=== PATIENT | male | born 1950 | race Caucasian/White ===

== ENCOUNTER 2017-01-16 08:57 | Inpatient (IN) | payer OTHER ==
[~2017-01-16 08:57] MED LIST: ACETAMINOPHEN 325 MG TAB PO PRN; D5W 1/2 NS W/ 20 KCl/L 1,000 ML IV SCH; KETOROLAC 15 MG/1 ML SDV IVP ONE; ONDANSETRON 4 MG/2 ML VIAL IVP PRN
[2017-01-16] MEDS ORDERED: LIDOCAINE 1% 5 ML SDV ID PRN (09:24)
[2017-01-16] MEDS ORDERED: LR 1,000 ML IV ONE (09:24)
[2017-01-16] MEDS ORDERED: ACETAMINOPHEN 325 MG TAB PO ONE (09:30)
[2017-01-16] MEDS ORDERED: FAMOTIDINE 20 MG TAB PO ONE (09:30)
[2017-01-16] MEDS ORDERED: ROPI/epiNEPH/KETOROLAC/morphINE JOINT COCKTAIL IU ONE (09:30)
[2017-01-16] MEDS ORDERED: CEFAZOLIN 2 GM/DEXTR 100 ML IV ONE (09:30)
[2017-01-16] MEDS ORDERED: CHLORHEXIDINE GLUC HIBICLENS 118 ML BTL TP ONE (09:30)
[2017-01-16] MEDS ORDERED: BACITRACIN 50,000 UNITS/10 ML SYR IRR ONE (10:42)
[2017-01-16] MEDS ORDERED: POLYMYXIN B SULFATE 500,000 UNIT/10 ML SYR IRR ONE (10:42)
[2017-01-16] MEDS ORDERED: CALCIUM CHLORIDE 1 GM/10 ML INJ ONE (10:42)
[2017-01-16] MEDS ORDERED: THROMBIN (BOVINE) 5,000 UNIT VIAL TP ONE (10:42)
[2017-01-16] MEDS ORDERED: PROPOFOL 200 MG/20 ML VIAL ONE ×2 (10:56→12:35)
[2017-01-16] MEDS ORDERED: ONDANSETRON 4 MG/2 ML VIAL ONE (10:56)
[2017-01-16] MEDS ORDERED: DEXAMETHASONE 4 MG/ML VIAL ONE (10:56)
[2017-01-16] MEDS ORDERED: LIDOCAINE 2% 100 MG/5 ML SYR ONE (10:56)
[2017-01-16] MEDS ORDERED: ROCURONIUM 50 MG/5 ML VIAL ONE (10:56)
[2017-01-16] MEDS ORDERED: fentaNYL 250 MCG/5 ML INJ ONE (10:56)
[2017-01-16] MEDS ORDERED: MIDAZOLAM 2 MG/2 ML VIAL ONE (11:16)
[2017-01-16] MEDS: VILAZODONE HYDROCHLORIDE 40 MG PO SCH (16:42)
[2017-01-16] MEDS: NON-FORMULARY NEW DRUG (Levomefolate/Algal Oil [Deplin-Algal Oil 15 Mg Capsule] 1 EACH) PO SCH (16:42)
[2017-01-16] MEDS: CALCIUM CARB W/VIT D 500 MG TAB PO SCH (16:42)
[2017-01-16] MEDS: KETOROLAC 15 MG/1 ML SDV IVP SCH ×3 (16:43→23:38)
[2017-01-16] MEDS: ceFAZolin 2 GM/DEXTROSE 100 ML IV SCH ×2 (16:44→21:26)
[2017-01-17] MEDS: ceFAZolin 2 GM/DEXTROSE 100 ML IV SCH (05:35)
[2017-01-17] MEDS: KETOROLAC 15 MG/1 ML SDV IVP SCH (05:35)
[2017-01-17] MEDS: oxyCODONE IR 5 MG TAB PO PRN ×2 (06:14→10:28)
[2017-01-17 07:26] VITALS: BP 109/69; PULSE 62; RESP 14; TEMP 97.8; O2SAT 99
--- NOTE | 2017-01-17 08:10 | PDIAF ---
- Diagnosis Diagnosis: right shoulder djd Code Status: Full Code - Medication Management Discharge Medications: Medications to Continue on Transfer Levomefolate/Algal Oil [Deplin-Algal Oil 15 mg Capsule] 1 each PO DAILY [Last Taken 01/16/17 06:00] Vilazodone Hydrochloride [Viibryd] 40 mg PO DAILY 03/10/16 [Last Taken 1 Day Ago ] Calcium Carb W/Vit D [Calcium Carb W/Vit D 500/200 (*)] 1,000 mg PO DAILY [Last Taken 1 Day Ago] Denosumab [Prolia] 60 mg SQ Q180D 12/19/16 [Last Taken 12/10/16] oxyCODONE IR [Oxycodone Ir (*)] 5 - 15 mg PO Q4HRS PRN #80 tab 01/17/17 [Last Taken Unknown] Discharge Medications: Refer to the Discharge Home Medication list for PRN reason. - Orders Services needed: Physical Therapy Diet Texture: Regular Texture Diet Activity/Weight Bearing Restrictions: pendulum rom. non weight bearing. daily dressing changes. may shower without bandage. f/u at two weeks. seek attn for increasing pain, shortness or breath, drainage, infection or other focal complaint - Follow Up Care Current Providers and Referrals: Sudhir Tomas MD [Primary Care Provider] -
[2017-01-17] MEDS: CALCIUM CARB W/VIT D 500 MG TAB PO SCH (08:11)
[2017-01-17] MEDS: VILAZODONE HYDROCHLORIDE 40 MG PO SCH (08:14)
[2017-01-17] MEDS: NON-FORMULARY NEW DRUG (Levomefolate/Algal Oil [Deplin-Algal Oil 15 Mg Capsule] 1 EACH) PO SCH (08:14)
--- NOTE | 2017-01-19 21:51 | GDS ---
[f rep st] DISCHARGE SUMMARY ADMITTING DIAGNOSIS: Right shoulder degenerative joint disease. DISCHARGE DIAGNOSIS: Right shoulder degenerative joint disease. PROCEDURE: Right total shoulder arthroplasty. OPERATIVE INDICATIONS: The patient is a 66-year-old gentleman who has arthritis to his right should er and a small rotator cuff tear. Given the persistent nature of his symptoms and failure with cons ervative measures, I have recommended operative intervention. I have outlined the surgical procedur e, risks, benefits, and alternatives. He wished to proceed. Appropriate consent will be signed and placed in the patient's chart. HOSPITAL COURSE: The patient was admitted to the hospital after uncomplicated total shoulder arthro plasty. He had no subsequent complications and was cleared for discharge the next morning without d ifficulty. At the time of discharge, he was tolerating an oral diet. His pain was well controlled on oral medicines. He is voiding without difficulty. His radial, ulnar and median nerve motor and sensory function are intact. His x-rays are anatomic. There is no fracture or lucency. His incisio n is clean, dry, and intact. DISCHARGE ACTIVITY: Nonweightbearing, pendulum range of motion. Ice on a p.r.n. basis. Daily dres sing changes. No soaking or immersion. Sling on a p.r.n. basis. FOLLOWUP: Follow up at 2 weeks. DISCHARGE MEDICATIONS: Oxycodone 5 mg 1-2 every 4 hours p.r.n. pain. /[id number]/MODL
--- NOTE | 2017-01-19 22:06 | GOP ---
[f rep st] OPERATIVE REPORT DATE OF OPERATION: 01/16/2017 SURGEON: Yuan Joseph MD COAL CRUSHER OPERATOR: Jose Luis Domínguez, PRIMARY COUNSELOR, SAFETY AND SKILL BASED PAY MANAGER, nursing surgical services director who was a medical necessity for the entire ty of the case. PREOPERATIVE DIAGNOSIS: Right shoulder arthritis. POSTOPERATIVE DIAGNOSIS: Right shoulder arthritis. PROCEDURE PERFORMED: Right total shoulder arthroplasty. FINDINGS: SPECIMENS: To Pathology, the humeral head. DESCRIPTION OF PROCEDURE: Patient was identified in the preanesthesia area. The right shoulder erica robby demarcated as operative site with indelible marker. He was given 2 g of Ancef intravenously en route to the operative suite. In the OR, general endotracheal anesthesia was administered. After an interscalene block, attention was turned to the right shoulder. He was positioned in a [place] ir position. All bony prominences were well padded. An appropriate time-out procedure was carried out. An anterior deltopectoral incision was made. This was carried sharply through skin and subcut aneous tissue directly to the cephalic vein. This was retracted with several fibers of the deltoid in a medial direction. A self-retaining retractor was placed deep to this. An incision was made al sal the subscapularis into the rotator cuff interval and the anterior supraspinatus tear which measu red approximately 1 cm. The biceps was tagged for later tenodesis. The subscapularis was elevated off the lesser tuberosity in a medial direction, as was the capsule. The arm was rotated in an exte rnal direction. Retractors were placed allowing visualization of the entire humeral head. Retracto rs were placed over the superior and inferior aspect and the bony cut was made with the arm in 30 de grees of external rotation. The bony fragment was withdrawn and measured on the back table. The ca nal was reamed to a size 12 stem. A 48 x 18 mm head was then assembled across the stem and a trial reduction carried out against the [place] glenoid. This allowed 50% subluxation anterior to posterio r. It was appropriate fit relative to the greater tuberosity. The humeral stem was then withdrawn. A protective hub cap was then placed. Retractors were placed allowing visualization of the underl ismael glenoid. The remnants of the labrum were sharply excised. A central pin was placed. The laura oid was reamed, and a 48 mm [place] Peg Glenoid was then placed after placement of the central drill hole and the peripheral surrounding holes. No cement was utilized. The anchor peg was secured firm ly. The humeral component was assembled on the back table in the appropriate orientation and impact ed across the proximal cut surface of the humeral stem. This was reduced, taken through full range of motion at approximately 50% anterior-posterior translation with direct manipulation. It was appr opriately balanced. The wound was copiously irrigated with pulsatile lavage solution. The supraspi natus and subscapularis were repaired to drill holes across the lesser tuberosity and greater tubero sity, incorporating the biceps in a tenodesis fashion. The deep tissue was then injected with a demetrius telet-rich plasma. Subcutaneous tissue closed using 0 Vicryl, 2-0 Monocryl, and susanne were applie d. A sterile dressing, Cryo/Cuff, and a sling were placed as well. The patient was awakened, extub ated, and taken to the recovery room in good stable condition. OPERATIVE INDICATIONS: The patient is a 66-year-old gentleman who has a small distal anterior supra spinatus rotator cuff tear and arthritis to his right shoulder. I have recommended repair of his ro tator cuff as well as a primary shoulder replacement given his underlying arthritis and limitation o f his day-to-day functioning. He understood the risks, benefits, and alternatives, and wished to pr oceed. Written consent was signed and placed in patient's chart. TOTAL TOURNIQUET TIME: None. COMPLICATIONS: None. IMPLANTS: The [employer] [place] standard 7 stem size, 135 degree taper assembly, standard hu meral head size 48 x 18, and a 48 mm [place] Peg Glenoid. DISPOSITION: To the recovery room, then the floor for postoperative management. /[id number]/MODL
[2017-06-09] MEDS ORDERED: Denosumab [Prolia] 60 MG SQ SCH (07:30)
== END 2017-01-17 11:02 | disposition home or self-care (01) | DRG 483 ==
LOC: F3N 08:57
PROVIDERS: ADMIT Orthopaedic Surgery; ATTEND Orthopaedic Surgery
PROC: 0RRJ0JZ Replacement of Right Shoulder Joint with Synthetic Substitute, Open Approach (ICD-10-PCS; principal; 2017-01-16 11:15)
DX: M19.011 Primary osteoarthritis, right shoulder (principal)
CPT/HCPCS: J0171; J0690; J1100; J1885; J2001; J2250; J2405; J2704; J2795; J3010

== ENCOUNTER → 2017-02-28 | Outpatient (CLI) | payer OTHER | LOC: BMCIMAGING 10:06 | PROVIDERS: ATTEND Physician Assistant | DX: Z47.1 Aftercare following joint replacement surgery (principal); Z96.611 Presence of right artificial shoulder joint ==